=== PATIENT | male | born 1975 | race Caucasian/White ===

== ENCOUNTER 2019-08-30 18:27 | Emergency (ER) | payer SELFPAY ==
[2019-08-30 19:00] VITALS: BP 127/79
[2019-08-30] MEDS ORDERED: AMOXICILLIN TR/POT CLAVULANATE 875-125 MG TAB PO ONE (19:32)
[2019-08-30] MEDS ORDERED: CLINDAMYCIN PHOSPHATE INJ 300 MG/2 ML SDV IM ONE (19:32)
[2019-08-30] MEDS ORDERED: DIPH/PERTUSS(ACELL)/TETANUS VAC/PF 0.5 ML SYR (>=10YO) IM ONE (19:33)
--- NOTE | 2019-08-30 19:37 | ER Document Report ---
HPI - HPI Patient complains to provider of: cat bite Onset: Just prior to arrival - 43-year-old male who was bitten by a cat last night to the left hand at the third MCP. Quality of pain: Achy Severity: Moderate Pain Level: 5 Associated Symptoms: None Exacerbated by: Movement Relieved by: Denies - MUSCULOSKELETAL Musculoskeletal: REPORTS: Extremity pain Past Medical History - General Information source: Patient - Social History Smoking Status: Never Smoker Cigarette use (# per day): No Chew tobacco use (# tins/day): No Smoking Education Provided: No Frequency of alcohol use: None Drug Abuse: None Family History: Reviewed & Not Pertinent Past Surgical History: Reports: Hx Orthopedic Surgery - Right Shoulder - Immunizations Hx Diphtheria, Pertussis, Tetanus Vaccination: Yes Vertical Provider Document - CONSTITUTIONAL Agree With Documented VS: Yes - INFECTION CONTROL TRAVEL OUTSIDE OF THE [place] IN LAST 30 DAYS: No - HEENT HEENT: Atraumatic, Conjuctival Injection, Normocephalic, PERRLA - NECK Neck: Normal Inspection - RESPIRATORY Respiratory: Breath Sounds Normal, No Respiratory Distress - CARDIOVASCULAR Cardiovascular: Regular Rate, Regular Rhythm - GI/ABDOMEN Gastrointestinal: Abdomen Soft, Abdomen Non-Tender - REPRODUCTIVE Male Genitalia: Normal Inspection - BACK Back: Normal Inspection - MUSCULOSKELETAL/EXTREMETIES Musculoskeletal/Extremeties: MAEW - NEURO Level of Consciousness: Awake, Alert - DERM Integumentary: Warm, Dry Notes: Patient has a red tender area around the left MCP after cat bite. Course - Re-evaluation Re-evalutation: 08/30/19 19:35 The patient I had a long conversation about the nature of his injury being a cat bite to the left third MCP we talked about how dirty a cats mouth could be the potential for tenosynovitis the importance for follow-up the importance of getting antibiotics on board immediately the importance of him following up here in 48 hours and absolutely sooner for any change or worsening of condition we talked about how we would sushant the wound with a marker and that he should return immediately for any redness going outside of that area he should soak the hand in warm water 4-5 times a day medication as prescribed must return immediately for absolutely any change or worsening condition. Patient was advised that while he was not a 50-50 on needing to be admitted with IV antibiotics that he was perhaps a 60/40 and it we wanted to give him the best shot forward of trying to avoid the hospitalization but at the same time the seriousness of the situation was communicated clearly and effectively to the patient and his who completely understood. Should be noted that he does not the cat is a friend and his vaccinations are all up-to-date. And the case was discussed with Dr. Rodriguez Again out of an abundance of caution CBC chemistries and blood cultures will be drawn and sent here right now. 08/30/19 19:37 08/30/19 19:41 - Vital Signs Vital signs: Temp Pulse Resp BP Pulse Ox 99 F 81 20 127/79 H 96 08/30/19 19:24 08/30/19 18:57 08/30/19 18:57 08/30/19 18:57 08/30/19 18:57 Discharge - Discharge Clinical Impression: Cat bite Qualifiers: Encounter type: initial encounter Qualified Code(s): W55.01XA - Bitten by cat, initial encounter Condition: Fair Disposition: HOME, SELF-CARE Instructions: Animal Bites ([facility]) Additional Instructions: Must soak the affected hand in warm water 4-5 times a day. Must take all antibiotics as prescribed starting immediately. Must return here for recheck as discussed on Monday bowel means should return sooner for absolutely any change worsening condition the area was marked he should return for increased pain increased redness increased inflammation and anything else that he feels as not normal. The seriousness of the situation was discussed at length with the patient and his he was advised that there would be if about a 6040 chance that he would need to come back for antibiotics there were trying to give him the best foot forward and a path to potentially avert hospitalization this puncture occurred approximately 24 hours ago. Prescriptions: Amoxicillin/Potassium Clav [Augmentin 875-125 Tablet] 1 tab PO Q12 #20 tablet Naproxen [Naprosyn 375 Mg Tablet] 375 mg PO BID PRN #20 tablet PRN Reason:
[2019-08-30 20:46] LABS: ABSOLUTE BASOPHILS # (AUTO) 0.1 10^3/uL (0.0-0.2); ABSOLUTE EOSINOPHILS # (AUTO) 0.1 10^3/uL (0.0-0.6); ABSOLUTE MONOCYTES (AUTO) 0.9 10^3/uL (0.1-1.4); ABSOLUTE NEUT (AUTO) 6.4 10^3/uL (1.7-8.2); BASOPHILS % (AUTO) 0.9 % (0-2); EOSINOPHILS % (AUTO) 1.2 % (0-6); HEMATOCRIT 42.9 % (37.9-51.0); HEMOGLOBIN 14.9 g/dL (13.5-17.0); LYMPHOCYTES % (AUTO) 21.3 % (13-45); MEAN CORPUSCULAR HEMOGLOBIN 32.5 pg (27.0-33.4); MEAN CORPUSCULAR HGB CONC 34.7 g/dL (32.0-36.0); MEAN CORPUSCULAR VOLUME 94 fl (80-97); MONOCYTES % (AUTO) 9.1 % (3-13); PLATELET COUNT 254 10^3/uL (150-450); RED BLOOD COUNT 4.58 10^6/uL (4.35-5.55); RED CELL DISTRIBUTION WIDTH 13.9 % (11.5-14.0); SEGMENTED NEUTROPHILS % (AUTO) 67.5 % (42-78); TOTAL CELLS COUNTED % (AUTO) 100 %; WHITE BLOOD COUNT 9.4 10^3/uL (4.0-10.5)
== END 2019-08-30 20:15 | disposition home or self-care (01) ==
LOC: ER 18:27
DX: S61.452A Open bite of left hand, initial encounter (principal); W55.01XA Bitten by cat, initial encounter; Z23 Encounter for immunization
CPT/HCPCS: 99283; 96372; 90471; 36415; 87040; 85025; 90715; J3490 ×2